=== PATIENT | male | born 1965 ===

== ENCOUNTER 2019-12-28 18:04 | Outpatient (CLI) | payer OTHER | END 2019-12-28 18:05 | disposition short-term general hospital (02) | LOC: EMS 18:04 | PROVIDERS: ATTEND Surgery | DX: M25.512 Pain in left shoulder (principal); M54.2 Cervicalgia; R20.2 Paresthesia of skin; V28.0XXA Motorcycle driver injured in noncollision transport accident in nontraffic accident, initial encounter; Y92.410 Unspecified street and highway as the place of occurrence of the external cause | CPT/HCPCS: A0425; A0427 ==